=== PATIENT | female | born 1990 | race Caucasian/White ===

== ENCOUNTER 2022-11-11 10:15 | Day surgery (SDC) | payer MEDICAID ==
[~2022-11-11] VITALS: Ht 152.4 cm; Wt 68.0 kg
[2022-11-11 11:01] VITALS: O2SAT 96
[2022-11-11 11:05] LABS: HCG,QUAL RESULT NEGATIVE (NEGATIVE)
[2022-11-11] MEDS ORDERED: METOCLOPRAMIDE HCL 10 MG/2 ML VIAL IVP PRN (13:00)
[2022-11-11] MEDS ORDERED: LR 1,000 ML IV SCH (13:00)
[2022-11-11] MEDS ORDERED: MIDAZOLAM HCL 2 MG/2 ML VIAL (VERSED) IVP PRN (13:00)
[2022-11-11] MEDS ORDERED: HYDROmorphone 1 MG/ML INJ. CARTRIDGE IVP PRN ×2 (13:00)
[2022-11-11] MEDS ORDERED: MEPERIDINE HCL/PF 25 MG/ML DISP.SYRIN IVP PRN (13:00)
[2022-11-11] MEDS ORDERED: LABETALOL 100 MG/ 20ML VIAL IVP PRN (13:00)
[2022-11-11] MEDS ORDERED: hydrALAZINE HCL 20 MG/ML VIAL IVP PRN (13:00)
[2022-11-11] MEDS ORDERED: ACETAMINOPHEN I.V. 1000 MG 100 ML IV ONE (13:11)
[2022-11-11] MEDS ORDERED: NS IRRIG SOLN 1000 ML IR ONE (15:10)
[2022-11-11] MEDS ORDERED: DESFLURANE 15 MIN GAS INH ONE (15:10)
[2022-11-11] MEDS ORDERED: ROCURONIUM BROMIDE 10 MG/ML (ZEMURON) ONE (15:10)
[2022-11-11] MEDS ORDERED: SUGAMMADEX SODIUM 200 MG/2 ML VIAL IV ONE (15:10)
[2022-11-11] MEDS ORDERED: LIDOCAINE 2%, 20 ML MDV ONE (15:10)
[2022-11-11] MEDS ORDERED: LABETALOL 100 MG/ 20ML VIAL ONE (15:10)
[2022-11-11] MEDS ORDERED: fentaNYL CITRATE/PF 100 MCG/2 ML AMP ONE (15:10)
[2022-11-11] MEDS ORDERED: BACITRACIN 1 GM OINT TP ONE (15:10)
[2022-11-11] MEDS ORDERED: PROPOFOL 200MG/ 20ML VIAL (DIPRIVAN) IV ONE (15:10)
[2022-11-11] MEDS ORDERED: DEXAMETHASONE SOD PHOSPHATE 4 MG/ML VIAL ONE (15:10)
[2022-11-11] MEDS ORDERED: NS 1000 ML IV.SOLN IV ONE (15:10)
[2022-11-11] MEDS ORDERED: ONDANSETRON HCL 4 MG/2 ML VIAL ONE (15:10)
[2022-11-11] MEDS ORDERED: NS 500 ML IV.SOLN IV ONE (15:10)
[2022-11-11] MEDS ORDERED: [UNRECOGNIZED DRUG - OTHER] ONE (15:10)
[2022-11-11] MEDS ORDERED: MIDAZOLAM HCL 5 MG/ML VIAL (VERSED) IV ONE (15:10)
[2022-11-11] MEDS ORDERED: HYDROmorphone 1 MG/ML INJ. CARTRIDGE ONE (15:23)
[2022-11-11 17:32] VITALS: PULSE 85; RESP 20
[2022-11-11 17:45] VITALS: BP_SYST 145
== END 2022-11-11 17:14 | disposition home or self-care (01) ==
LOC: SDS 10:15 → SMU 10:17 → EDSEX 11:15 → SDS 17:14
PROVIDERS: ATTEND Otolaryngology
DX: J34.2 Deviated nasal septum (principal); D38.5 Neoplasm of uncertain behavior of other respiratory organs; J32.9 Chronic sinusitis, unspecified; J30.1 Allergic rhinitis due to pollen; K21.9 Gastro-esophageal reflux disease without esophagitis; G43.909 Migraine, unspecified, not intractable, without status migrainosus; Z79.899 Other long term (current) drug therapy
CPT/HCPCS: 31298; 84703; 87070; 87075; 87101; 88304; 88305; 88311; 30140; 30520; 31255; 31256; J3490 ×2; J1100; J2001; J2250; J2405; J2704; J3010; J7040; J7030; C1726; J0131; J1170